=== PATIENT | female | born 1965 | race Asian ===

== ENCOUNTER 2018-09-16 09:49 | Emergency (ER) | payer OTHER ==
[2018-09-16 10:01] VITALS: BP 179/81
[2018-09-16] MEDS ORDERED: PROPARACAINE 0.5% OPHTH DROPS 15 ML RIGHTEYE STA (11:09)
[2018-09-16] MEDS ORDERED: PROPARACAINE 0.5% OPHTH DROPS 15 ML LEFTEYE STA (11:10)
--- NOTE | 2018-09-16 11:34 | ED Physician Documentation ---
PD HPI OPHTHO - Stated complaint Stated Complaint: LT EYE PX/REDNESS - Chief complaint Chief Complaint: Heent - History obtained from History obtained from: Patient, Family - History of Present Illness Timing - onset: Last night Timing - duration: Hours Timing - details: Abrupt onset, Still present Location: Left Quality / character: Aching Associated symptoms: Redness Contributing factors: Blunt trauma Similar symptoms before: Has not had sx before Recently seen: Not recently seen - Additional information Additional information: 53-year-old female was in bed last night when she pulled the blankets up to her face and she hit her left eye with a blanket. She does not have any foreign body sensation but she does have marked erythema to the eye and swelling associated with this. She does not have any change to her vision and she denies any preceding abnormality with her eye. She has not on any blood thinners. Review of Systems Constitutional: denies: Fever, Chills Eyes: denies: Loss of vision, Decreased vision, Photophobia, Discharge, Irritation Ears: denies: Ear pain Nose: denies: Rhinorrhea / runny nose, Congestion Throat: denies: Sore throat Respiratory: denies: Cough GI: denies: Vomiting Neurologic: denies: Generalized weakness, Focal weakness, Numbness PD PAST MEDICAL HISTORY - Past Medical History Past Medical History: No - Past Surgical History Past Surgical History: No - Present Medications Home Medications: Ambulatory Orders Medication Instructions Recorded Confirmed Neomycin/Poly/Dex Ophth Drops 1 drops LEFTEYE BID #1 bottle 09/16/18 [Maxitrol Ophth Drops] - Allergies Allergies/Adverse Reactions: Allergies Allergy/AdvReac Type Severity Reaction Status Date / Time No Known Drug Allergies Allergy Verified 09/16/18 10:01 - Social History Does the pt smoke?: No Smoking Status: Never smoker Does the pt drink ETOH?: No Does the pt have substance abuse?: No - Immunizations Immunizations are current?: Yes - POLST Patient has POLST: No PD ED PE NORMAL - Vitals Vital signs reviewed: Yes (hypertensive ) - General General: Alert and oriented X 3, No acute distress, Well developed/nourished - HEENT HEENT: PERRL, EOMI, Other (obvious left subconjunctival hemmorhage without hyphema, no fluroscien uptake and normal EOM .) - Neck Neck: Supple, no meningeal sign, No bony TTP - Respiratory Respiratory: No respiratory distress - Derm Derm: Normal color, Warm and dry, No rash - Extremities Extremities: No deformity, No edema - Neuro Neuro: Alert and oriented X 3, 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 She is placed onto some Maxitrol ophthalmic drops and we will expect full recovery. Departure - Departure Disposition: 01 Home, Self Care Clinical Impression: Subconjunctival bleed Qualifiers: Laterality: left Qualified Code(s): H11.32 - Conjunctival hemorrhage, left eye Condition: Stable Instructions: ED Eye Injury Subconj Hemorrhage Follow-Up: Thompson Noble MD [Provider Admit Priv/Credential] - Prescriptions: Neomycin/Poly/Dex Ophth Drops [Maxitrol Ophth Drops] 1 drops LEFTEYE BID #1 bottle
== END 2018-09-16 11:50 | disposition home or self-care (01) ==
LOC: ED 09:49
DX: H11.32 Conjunctival hemorrhage, left eye (principal)
CPT/HCPCS: 99283; J3490